=== PATIENT | female | born 1950 | race Caucasian/White ===

== ENCOUNTER 2024-05-15 06:56 | Day surgery (SDC) | payer OTHER ==
[~2024-05-15] VITALS: Ht 162.6 cm; Wt 61.2 kg
[~2024-05-15 06:56] MED LIST: CLON0.1T PO; DIAZ-680 PO; METO25TA93 PO
[2024-05-15] MEDS ORDERED: diphenhdrAMINE HCL 50 MG/1 ML VL IV ONE (08:45)
[2024-05-15] MEDS: LIDOCAINE VISCOUS 2% 15ML UD PO ONE (09:03)
[2024-05-15] MEDS: fentaNYL CITRATE 100 MCG/2 ML VL IV ONE (09:04)
[2024-05-15] MEDS: MIDAZOLAM HCL 2MG/2ML 2ml VIAL (1mg/ml) IV ONE (09:04)
[2024-05-15 09:11] VITALS: BP 176/78; PULSE 67; RESP 20; O2SAT 98
[2024-05-15 09:26] VITALS: BP 128/48; PULSE 55; RESP 20; O2SAT 98
[2024-05-15] MEDS ORDERED: LIDOCAINE VISCOUS 2% 15ML UD PO ONE (09:30)
[2024-05-15] MEDS ORDERED: MIDAZOLAM HCL 2MG/2ML 2ml VIAL (1mg/ml) IV ONE (09:30)
[2024-05-15 09:40] VITALS: BP 119/44; PULSE 53; RESP 19; O2SAT 98
[2024-05-15] MEDS ORDERED: MIDAZOLAM HCL 2MG/2ML 2ml VIAL (1mg/ml) ONE (09:44)
[2024-05-15 09:56] VITALS: BP 116/56; PULSE 55; RESP 23; O2SAT 97
[2024-05-15 10:11] VITALS: BP 150/57; PULSE 60; RESP 21; O2SAT 93
== END 2024-05-15 10:28 | disposition home or self-care (01) ==
LOC: CATH 06:56
PROVIDERS: ATTEND Internal Medicine
DX: I08.3 Combined rheumatic disorders of mitral, aortic and tricuspid valves (principal); Z98.51 Tubal ligation status; Z83.49 Family history of other endocrine, nutritional and metabolic diseases
CPT/HCPCS: 93312; J2250; J3010; J7030; 99152